=== PATIENT | male | born 1940 | race Caucasian/White ===

== ENCOUNTER 2016-11-23 06:22 | Day surgery (SDC) | payer MEDICARE ==
[~2016-11-23] VITALS: Ht 185.4 cm; Wt 88.6 kg
[2016-11-23] VITALS (7 sets, daily range): BP systolic 125–149; BP diastolic 62–74; PULSE 59–63; RESP 15–20; O2SAT 95–98
[~2016-11-23 06:22] MED LIST: CEPH500C PO; DEX1 PO; DXM4T PO; LENA15CA PO; RIVA20TA PO
[2016-11-23] MEDS ORDERED: Ondansetron 2 mg/mL 2 mL Inj ONE (06:23)
[2016-11-23] MEDS ORDERED: Propofol 10,000 mCg/mL 20 mL Inj ONE (06:23)
[2016-11-23] MEDS ORDERED: fentaNYL-PF 50 mCg/mL 2 mL Inj ONE (06:23)
[2016-11-23] MEDS ORDERED: Dexamethasone 4 mg/mL Inj ONE (06:23)
[2016-11-23] MEDS ORDERED: Lidocaine PF 1% 30 mL Inj ONE (06:23)
[2016-11-23] MEDS: Lactated Ringer's 1,000 ML IV SCH ×3 (07:35→10:29)
[2016-11-23] MEDS ORDERED: Lactated Ringer's 1,000 ML IV SCH (08:52)
[2016-11-23] MEDS ORDERED: Lactated Ringer's 500 ML IV PRN (08:52)
--- NOTE | 2016-11-23 08:52 | PCM.HPANE ---
Patient Data Surgeon Admitting Provider: Attending Provider:Travon Leyva MD Primary Care Physician:Baljeet Smith MD Other Provider: Reason for Visit Open Wound On Scalp, Right Eyelid Wound Ht/WT & BMI Height (Feet): 6 Height (Inches): 1.00 Weight (Kilograms): 88.600 Body Mass Index 25.00 Allergies Coded Allergies: TAPE (Verified Allergy, Unknown, 08/31/16) Past Anesthesia History Anesthesia History: Denies:: Abnormal Airway, Anesthesia Reactions, Difficult Intubation, Malignant Hyperthermia Diabetes History Hx Diabetes?: No MRSA MRSA: No Medications Blood Thinner: Xarelto Last Dose Blood Thinner: Nov 21, 2016 Hypertension Medication: No Home Meds Incl Beta Riya: No Reported Medications Rivaroxaban (Xarelto)20 Mg Stvymi31 Mg PO DAILY 11/22/16 Cephalexin 500 Mg Wpxccbv447 Mg PO BID #40 CAPSULE Ref 0 11/22/16 Lenalidomide (Revlimid)15 Mg Wfxsagn23 Mg PO DAILY DAYS 1-21 IF 28 DAY CYCLE 08/30/16 Dexamethasone 4 Mg Tablet4 Mg PO BID Ref 0 08/30/16 Dexamethasone 1 Mg Tab2 Mg PO DAILY X 5 DAYS 08/30/16 Discontinued Reported Medications Doxycycline Hyclate 100 Mg Vvkgfaw179 Mg PO BID PLEASE VERIFY DOSAGE & FREQUENCY 08/30/16 Warfarin Sodium 3 Mg Tablet3-4 Mg PO DAILY 30 Days Ref 0 08/30/16 History History of ENT Problems?: Yes HEENT History: Denies:: Abnormal Airway Cataracts (S/P BILAT EXTRACTIONS) Difficult Intubation Hx of Heart Problems?: Yes Cardiovascular History: Positive for:: Thrombophlebitis (HX OF DVT- ANTICOAGULATION) Denies:: Heart Murmur Hypertension Hx of Respiratory Problem?: No Respiratory History: Denies:: Use of C-PAP Machine Hx Neurologic Problems?: No Hx of GI Problems?: No Hx of Problems?: No Male Hx: Denies:: Prostate Problems Scrotal Mass Testicular Surgery Skin History: Positive for:: History Skin Disorders? (RT HAND LESION(CA)= CURRENT PROBLEM, L EYELID) Denies:: Pressure Ulcers Hx Musculoskeletal Problems?: Yes Musculoskeletal History: Positive for:: Back Injury (BOTHERS HIM RARELY) Hx of Psycho/Social Problems?: No Hx Surgeries?: Yes (EXC MULT SKIN CA'S,BILAT CATARACTS,EXC LIPOMAS, TONSILLECTOMY) Hx Any Other Health Problems?: Yes Other History: Positive for:: Cancer (BASAL CELL,SQUAMOUS CELL, MYELOMAS-SKIN) Thyroid Disease Denies:: Endocrine Disease Hospitalization History Blood Transfusions: Denies:: Blood Transfusions Hx Diabetes: No Hx Alcohol Use: Yes (PAST ) Smoking Status: Never Smoker Have You Smoked inLast 12 mo: No Stop/Bang S-Snoring: Do You Snore Loudly: No [place] Risk Assessment: Low Risk, <3 Yes Risk Assessment Category Category 1A: Patient has history of documented sleep apnea, and HAS NOT received any narcotic, sedative or anesthesia administration during this stay. Category 1B: Patient has history of documented sleep apnea, and HAS received any narcotic , sedative or anesthesia administration during this stay Category 2: Patient has SUSPECTED Obstructive Sleep Apnea, and HAS received any narcotic , sedative or anesthesia administration during this stay. Category 3: Patient has SUSPECTED Obstructive Sleep Apnea and HAS NOT received narcotic, sedative or anesthesia administration during this stay. Category 4: Outpatient in Procedural Areas with known sleep apnea or who screen positive for High Risk via the STOP/BANG questionnaire. Exam Exam Vital Signs Vital Signs Date Time Temp Pulse Resp B/P Pulse Ox O2 Delivery O2 Flow Rate FiO2 11/23/16 06:47 35.8 63 18 149/70 98 Room Air General Appearance: Alert, Oriented X3 HEENT/AIRWAY: MP 3 Lungs: Clear to Auscultation Heart: Exam Unremarkable Meds/Labs/Diagnostics Admission Meds Current Medications Lactated Ringer's (Lr) 1,000 ml @ 120 mls/hr Q8H20M IV Last administered on t 07:35; Start 11/23/16 at 05:00; Stop 11/23/16 at 13:19 Plan Impression Patient chart reviewed, patient interviewed and anesthestic plan with risks, benefits, and alternatives discussed, and informed consent obtained. NPO Status: mn ASA Physical Status: ASA3 Severe Disease Anesthetic Plan: GA Bene/Risks/Altern/Consents: Yes HP Complete Prior to Induction: Yes Adal Torre DO Nov 23, 2016 08:14
[2016-11-23] MEDS ORDERED: EPHEDrine Sulfate 50 mg/mL Inj IVPUSH PRN (08:55)
[2016-11-23] MEDS ORDERED: fentaNYL-PF 50 mCg/mL 2 mL Inj IVPUSH PRN (08:55)
[2016-11-23] MEDS ORDERED: Phenylephrine 10,000 mCg/mL Inj IVPUSH PRN (08:55)
[2016-11-23] MEDS ORDERED: Ondansetron 2 mg/mL 2 mL Inj IVPUSH PRN (08:55)
[2016-11-23] MEDS ORDERED: hydrALAZINE 20 mg/mL Inj IVPUSH PRN (08:55)
[2016-11-23] MEDS ORDERED: Dexamethasone 4 mg/mL Inj IVPUSH PRN (08:55)
[2016-11-23] MEDS ORDERED: Labetalol 5 mg/mL 4 mL Inj IV PRN (08:55)
[2016-11-23] MEDS ORDERED: MetoCLOpramide 5 mg/mL 2 mL Inj IVPUSH PRN (08:55)
[2016-11-23] MEDS ORDERED: Atropine 0.4 mg/mL Inj IVPUSH PRN (08:55)
[2016-11-23] MEDS ORDERED: HYDROmorphone 1 mg/mL Inj IVPUSH PRN (08:55)
[2016-11-23] MEDS ORDERED: Bupivacaine-MPF 0.25%/EPI 30 mL Inj INJ ONE (09:03)
[2016-11-23] MEDS ORDERED: HYDROcodone-APAP 5-325 mg Tablet PO PRN (10:15)
--- NOTE | 2016-11-23 10:56 | PCM.ANEP1 ---
Post Anesthesia Phase 1 PACU Phase 1 Assessment Vital Signs Vital Signs Date Time Temp Pulse Resp B/P Pulse Ox O2 Delivery O2 Flow Rate FiO2 11/23/16 10:30 60 15 140/64 95 Room Air 11/23/16 10:15 63 15 133/74 96 Room Air 11/23/16 10:10 62 20 126/62 96 Room Air 11/23/16 10:06 37.1 60 15 125/64 95 Room Air 11/23/16 06:47 35.8 63 18 149/70 98 Room Air Anesthetic Administered: GA Level of Alertness: Sleepy, easy to arouse SCHREIBER's with Equal Strength: Yes Pain: No Nausea or Vomiting: No Oxygen Delivery: Room Air Lungs: Clear to Auscultation Adal Torre DO Nov 23, 2016 10:55
--- NOTE | 2016-11-23 10:56 | PCM.ANEP2 ---
Post Anesthesia Evaluation ASA/CMS Post Anesthesia VS in Patient's Normal Range?: Yes Resp Stable; Airway Patent?: Yes CV Function & Hydration Stable: Yes Mental Status Recovered?: Yes Pain control Satisfactory?: Yes N/V Control Satisfactory?: Yes Adal Torre DO Nov 23, 2016 10:56
--- NOTE | 2016-11-25 10:54 | OP ---
[address] [address] OPERATIVE REPORT PATIENT: AMARI FISHER : 1940 MR#: [id number] ADMIT: 11/23/2016 JOB ID: [id number] DATE OF SURGERY: 11/23/2016 PREOPERATIVE DIAGNOSIS(ES): 1. Right upper eyelid defect measuring 1.7 cm x 1 cm status post Mohs procedure. 2. Right parietal scalp defect measuring 2 cm in diameter status post Mohs defect. 3. Left parietal defect measuring 1 cm in diameter status post Mohs defect. POSTOPERATIVE DIAGNOSIS(ES): 1. Right upper eyelid defect measuring 1.7 cm x 1 cm status post Mohs procedure. 2. Right parietal scalp defect measuring 2 cm in diameter status post Mohs defect. 3. Left parietal defect measuring 1 cm in diameter status post Mohs defect. PROCEDURE: 1. Full-thickness skin grafting to right parietal scalp defect, total area of skin graft 3 sq cm. 2. Layered closure of left parietal scalp defect, total length of layered closure 4 cm. 3. Simple closure of right eye brow defect, total length of simple closure 3 cm. SURGEON: Travon Leyva MD FRONT CLERK: None. ANESTHESIA: General anesthesia. COMPLICATIONS: None apparent. ESTIMATED BLOOD LOSS: Minimal. SPECIMEN: None. INDICATIONS FOR PROCEDURE: This is a 76-year-old male patient with a history of several skin cancers in the head and neck area. The patient had Mohs procedures on November 21, 2016 to the right brow, right parietal scalp and left parietal scalp. The patient has three resultant defects. Closure and coverage are indicated. PROCEDURES AND FINDINGS: The patient was identified in the preoperative area and surgical sites were marked. The patient was then taken back to the operating room and placed supine on the operating table. Appropriate time-outs were taken. General anesthesia was induced smoothly. The patient was then prepped and draped in the usual sterile manner. Local anesthesia was then infiltrated to the surgical sites consisting of Marcaine with epinephrine. I first turned my attention to the right brow. The patient has a trapezoidal shaped defect that is located on the upper eyelid. It abuts the brow. It is approximately 1 cm in height and 1.2 cm in width. An ellipse was then designed to encompass this defect. The axis of the ellipse was oriented along the relaxed skin tension line and with the orbital rim. Incision was then made along the ellipse through the thinned upper eyelid skin down to the underlying orbicularis muscle. Hemostasis was obtained with electrocautery. The skin was then removed sharply with a pair of iris scissors. Once hemostasis was obtained, the defect was reapproximated with a layer of 5-0 Prolene simple running suture. The total length of simple closure was 3 cm. I then turned my attention to the right parietal scalp. The patient has a 2 cm or so defect in the parietal scalp. There is a small amount of adipose tissue at the base of the wound. I first performed blunt dissection to elevate the wound edge off of the underlying galea circumferentially for approximately 3-4 cm in each direction. Once this has been done, I tried to mobilize the scalp. The scalp was not particularly mobile and there was no possibility that this wound can be closed primarily. I elected to proceed with skin grafting. A small ellipse was then designed along the patient's right clavicle. An incision was then made with a #15 blade down through the epidermis into the dermis. The ellipse of skin was then elevated at a mid dermal level. Once this has been done, it was placed in a moist Ray-Ever for storage. The shoulder defect was then reapproximated first with a layer of 3-0 Monocryl deep dermal suture followed by 4-0 Monocryl running subcuticular suture. The skin graft was then gently defatted and placed into the scalp defect. It was then sutured in several spots using 4-0 silk simple interrupted sutures with the tails left long. Excess graft was trimmed. A layer of 5-0 fast-absorbing gut simple running suture was then placed circumferentially. I then placed several more 4-0 silk simple interrupted sutures around this graft. Once this has been done, a 4x4 inch Xeroform was then obtained and wadded up. It was then placed over the graft. It was then secured using the tails from the 4-0 silk sutures in a tie-over manner. Once this has been done, I turned my attention to the left parietal scalp defect. An ellipse was then designed with the axis to lie along the hairline. Incision was then made with a #15 blade down to the underlying subcutaneous tissue. The ellipse was then elevated at a mid subcutaneous level. I then elevated the skin flap anteriorly and posteriorly off of the galea for approximately 3-4 cm in diameter. Once this has been done, the layer of 3-0 Monocryl deep dermal sutures were then placed, followed by skin harsha for final epidermal reapproximation. The total length of layered closure was 4 cm. The patient tolerated the procedure well. Needle count, sponge count, instrument counts were correct at the end of the procedure. The patient was extubated and transported to recovery in stable condition.
[2016-12-13] MEDS ORDERED: WARF4TAB PO (16:08)
[2016-12-13] MEDS ORDERED: WARF3TAB PO (16:08)
[2016-12-14] MEDS ORDERED: RIVA20TA PO (12:07)
[2017-01-24] MEDS ORDERED: HYDR-4003 PO (18:35)
[2017-01-24] MEDS ORDERED: CEPH-512 PO (18:35)
== END 2016-11-23 23:59 | disposition home or self-care (01) ==
LOC: SAS 06:22
PROVIDERS: ATTEND Plastic Surgery
DX: S01.101A Unspecified open wound of right eyelid and periocular area, initial encounter (principal); S01.00XA Unspecified open wound of scalp, initial encounter; Z85.828 Personal history of other malignant neoplasm of skin; I82.502 Chronic embolism and thrombosis of unspecified deep veins of left lower extremity; Z79.01 Long term (current) use of anticoagulants
CPT/HCPCS: 12013; 12032; 14020; J1100; J2405; J3010; J7120

== ENCOUNTER 2016-12-15 06:46 | Day surgery (SDC) | payer MEDICARE ==
[~2016-12-15] VITALS: Ht 182.9 cm; Wt 89.3 kg
[~2016-12-15 06:46] MED LIST changes: -CEPH500C PO; +CeFAZolin Inj 2 GM in IV Premix 1 EACH IV ONE; -DEX1 PO; +Lactated Ringer's 1,000 ML IV SCH; +WARF4TAB PO
[2016-12-15] MEDS ORDERED: fentaNYL-PF 50 mCg/mL 2 mL Inj ONE (06:47)
[2016-12-15 07:09] VITALS: BP 140/71; PULSE 53; RESP 16; O2SAT 98
[2016-12-15] MEDS: Lactated Ringer's 1,000 ML IV SCH ×2 (07:40→09:36)
[2016-12-15] MEDS ORDERED: DXM4T PO (07:45)
[2016-12-15] MEDS ORDERED: Lactated Ringer's 500 ML IV PRN (08:57)
[2016-12-15] MEDS ORDERED: Lactated Ringer's 1,000 ML IV SCH (08:57)
--- NOTE | 2016-12-15 08:57 | PCM.HPANE ---
Patient Data Date of Service: Dec 15, 2016 Surgeon Admitting Provider: Attending Provider:Travon Leyva MD Primary Care Physician:Baljeet Smith MD Other Provider:[facility] Reason for Visit Left Forearm Squamous Cell Carcinoma Ht/WT & BMI Height (Feet): 6 Height (Inches): 0.00 Weight (Kilograms): 89.300 Body Mass Index 26.00 Allergies Coded Allergies: TAPE (Verified Adverse Reaction, Severe, OCCLUSIVE TAPE PULLS OFF SKIN, ) Past Anesthesia History Anesthesia History: Denies:: Abnormal Airway, Anesthesia Reactions, Difficult Intubation, Malignant Hyperthermia Diabetes History Hx Diabetes?: No MRSA MRSA: No Medications Blood Thinner: Xarelto Last Dose Blood Thinner: Dec 13, 2016 Hypertension Medication: No Home Meds Incl Beta Riya: No Reported Medications Dexamethasone 4 Mg Lxywni51 Mg PO FRID AND SAT Ref 0 12/15/16 Rivaroxaban (Xarelto)20 Mg Iogxpx20 Mg PO DAILY 12/14/16 Lenalidomide (Revlimid)15 Mg Ailxpyg29 Mg PO DAILY DAYS 1-21 OF 28 DAY CYCLE 08/30/16 Discontinued Reported Medications Warfarin Sodium (Coumadin)4 Mg Tablet4 Mg PO EVERY OTHER DAY 30 Days Ref 0 ALTERNATES W/ 3MG 12/13/16 Warfarin Sodium (Coumadin)3 Mg Tablet3 Mg PO EVERY OTHER DAY 30 Days Ref 0 ALTERNATES W/ 4MG 12/13/16 Rivaroxaban (Xarelto)20 Mg Buooai24 Mg PO DAILY 11/22/16 Cephalexin 500 Mg Phqjxbh332 Mg PO BID #40 CAPSULE Ref 0 11/22/16 Dexamethasone 1 Mg Tab2 Mg PO DAILY X 5 DAYS 08/30/16 History History of ENT Problems?: Yes HEENT History: Denies:: Abnormal Airway Cataracts (S/P BILAT EXTRACTIONS) Difficult Intubation Other HEENT Pertinent History: S/P TONSILLECTOMY Hx of Heart Problems?: Yes Cardiovascular History: Positive for:: Thrombophlebitis (HX OF DVT- ANTICOAGULATION) Denies:: Heart Murmur Hypertension Hx of Respiratory Problem?: No Respiratory History: Denies:: Use of C-PAP Machine Hx Neurologic Problems?: No Hx of GI Problems?: No Hx of Problems?: No Male Hx: Denies:: Prostate Problems Scrotal Mass Testicular Surgery Skin History: Positive for:: History Skin Disorders? (S/P MULT BCC/SCC EXC ( HAND,EYELID) LT FOREARM SC CA=CURRENT PROBLEM) Denies:: Pressure Ulcers Hx Musculoskeletal Problems?: Yes Musculoskeletal History: Positive for:: Back Injury (BOTHERS HIM RARELY) Hx of Psycho/Social Problems?: No Hx Surgeries?: Yes (EXC MULT SKIN CA'S,BILAT CATARACTS,EXC LIPOMAS, TONSILLECTOMY) Hx Any Other Health Problems?: Yes Other History: Positive for:: Cancer (BASAL CELL,SQUAMOUS CELL, Multiple myeloma) Thyroid Disease Denies:: Endocrine Disease Hospitalization History Blood Transfusions: Denies:: Blood Transfusions Hx Diabetes: No Hx Alcohol Use: Yes (PAST )Hx Substance Use: No Smoking Status: Never Smoker Have You Smoked inLast 12 mo: No Stop/Bang Treated for Sleep Apnea?: No Do You Have a CPAP Machine?: No S-Snoring: Do You Snore Loudly: No T-Tired: feel tired, fatigued: No O-Obsered: Observed not breath: No P-Blood Pressure: treated: No B- Body Mass Index > 35 kg/m2: No A- Age over 50: Yes N- Neck Large Circumference: No G- Gender Male: Yes [place] Total Score: 2 [place] Risk Assessment: Low Risk, <3 Yes Risk Assessment Category Category 1A: Patient has history of documented sleep apnea, and HAS NOT received any narcotic, sedative or anesthesia administration during this stay. Category 1B: Patient has history of documented sleep apnea, and HAS received any narcotic , sedative or anesthesia administration during this stay Category 2: Patient has SUSPECTED Obstructive Sleep Apnea, and HAS received any narcotic , sedative or anesthesia administration during this stay. Category 3: Patient has SUSPECTED Obstructive Sleep Apnea and HAS NOT received narcotic, sedative or anesthesia administration during this stay. Category 4: Outpatient in Procedural Areas with known sleep apnea or who screen positive for High Risk via the STOP/BANG questionnaire. Exam Exam Vital Signs Vital Signs Date Time Temp Pulse Resp B/P Pulse Ox O2 Delivery O2 Flow Rate FiO2 12/15/16 07:09 36.5 53 16 140/71 98 Room Air General Appearance: Alert, Oriented X3, Cooperative HEENT/AIRWAY: MP 2, Neck Movement (Full), Mouth Opening (Wide) Lungs: Clear to Auscultation, Normal Air Movement Heart: Normal S1, Normal S2 Meds/Labs/Diagnostics Admission Meds Current Medications Lactated Ringer's (Lr) 1,000 ml @ 120 mls/hr Q8H20M IV Last administered on t 07:40; Start 12/15/16 at 05:00; Stop 12/15/16 at 13:19 Plan Impression Patient chart reviewed, patient interviewed and anesthestic plan with risks, benefits, and alternatives discussed, and informed consent obtained. NPO Status: MN ASA Physical Status: ASA3 Severe Disease Anesthetic Plan: MAC Bene/Risks/Altern/Consents: Yes HP Complete Prior to Induction: Yes Adam Garcia MD Dec 15, 2016 08:40
[2016-12-15] MEDS ORDERED: Ondansetron 2 mg/mL 2 mL Inj IVPUSH PRN (09:00)
[2016-12-15] MEDS ORDERED: Phenylephrine 10,000 mCg/mL Inj IVPUSH PRN (09:00)
[2016-12-15] MEDS ORDERED: MetoCLOpramide 5 mg/mL 2 mL Inj IVPUSH PRN (09:00)
[2016-12-15] MEDS ORDERED: fentaNYL-PF 50 mCg/mL 2 mL Inj IVPUSH PRN (09:00)
[2016-12-15] MEDS ORDERED: HYDROmorphone 1 mg/mL Inj IVPUSH PRN (09:00)
[2016-12-15] MEDS ORDERED: Labetalol 5 mg/mL 4 mL Inj IV PRN (09:00)
[2016-12-15] MEDS ORDERED: Atropine 0.4 mg/mL Inj IVPUSH PRN (09:00)
[2016-12-15] MEDS ORDERED: EPHEDrine Sulfate 50 mg/mL Inj IVPUSH PRN (09:00)
[2016-12-15] MEDS ORDERED: Dexamethasone 4 mg/mL Inj IVPUSH PRN (09:00)
[2016-12-15] MEDS ORDERED: hydrALAZINE 20 mg/mL Inj IVPUSH PRN (09:00)
[2016-12-15] MEDS ORDERED: Bupivacaine-MPF 0.5% W/EPI 30 mL Inj INFILTRATE ONE (09:35)
--- NOTE | 2016-12-15 10:08 | PCM.ANEP1 ---
Post Anesthesia Phase 1 PACU Phase 1 Assessment Date of Service: Dec 15, 2016 Vital Signs Phase II - HR 62, O2 96% RA, T 36.0, RR 12, BP 125/72 Vital Signs Date Time Temp Pulse Resp B/P Pulse Ox O2 Delivery O2 Flow Rate FiO2 12/15/16 07:09 36.5 53 16 140/71 98 Room Air Anesthetic Administered: MAC Level of Alertness: Awake, talking SCHREIBER's with Equal Strength: Yes Pain: No Nausea or Vomiting: No Oxygen Delivery: Room Air Lungs: Normal Air Movement Adam Garcia MD Dec 15, 2016 10:08
[2016-12-15 10:11] VITALS: BP 125/72; PULSE 60; RESP 16; O2SAT 97
--- NOTE | 2016-12-15 10:21 | PCM.ANEP2 ---
Post Anesthesia Evaluation ASA/CMS Post Anesthesia Date of Service: Dec 15, 2016 VS in Patient's Normal Range?: Yes Resp Stable; Airway Patent?: Yes CV Function & Hydration Stable: Yes Mental Status Recovered?: Yes Pain control Satisfactory?: Yes N/V Control Satisfactory?: Yes Adam Garcia MD Dec 15, 2016 10:21
[2016-12-15 10:39] VITALS: BP 123/64; PULSE 51; RESP 16; O2SAT 98
--- NOTE | 2016-12-15 14:45 | OP ---
[address] [address] OPERATIVE REPORT PATIENT: AMARI FISHER : 1940 MR#: [id number] ADMIT: 12/15/2016 JOB ID: [id number] DATE OF SURGERY: 12/15/2016 PREOPERATIVE DIAGNOSIS(ES): Left forearm squamous cell carcinoma. POSTOPERATIVE DIAGNOSIS(ES): Left forearm squamous cell carcinoma. PROCEDURES PERFORMED: 1. Excision of left forearm squamous cell carcinoma; diameter 2 cm. 2. Layered closure of left forearm defect; total length of layered closure 7 cm. SURGEON: Travon Leyva MD. DUTY MANAGER: None. ANESTHESIA: MAC, with local. COMPLICATIONS: None apparent. SPECIMEN: None. 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 At this point, excision and subsequent closure are indicated. PROCEDURES AND FINDINGS: The patient was identified in the preoperative area and surgical site was marked. The patient was then taken back to the operating room and placed supine on the operating table. Appropriate time-outs were taken. MAC was induced smoothly. The patient was then prepped and draped in the usual sterile manner. Local anesthesia was then infiltrated into the surgical site consisting of 1% lidocaine and 0.25% Marcaine with epinephrine. It was noted that patient has a healed biopsy scar on the left forearm. His previous pathology report demonstrated positive deep margins only. I made a hawa around the patient's scar with a minimal margin. Incision was then made with a #15 blade down into the subcutaneous tissue. The circular piece of skin was then resected with a cuff of subcutaneous tissue on its underside. A short stitch was then used to hawa distal and long stitch dorsal. Hemostasis was obtained with electrocautery. The patient's specimen was then passed off to Pathology for frozen section, which demonstrated no residual cancer. There was some atypia at the proximal margin. At this point, an ellipse was then designed to encompass the defect. This should include the area of atypia that was seen on the specimen. Incision was then made around the ellipse, down into the underlying subcutaneous tissue. The ellipse was then resected with minimal subcutaneous tissue. Again, the defect diameter was approximately 2 cm. The incision was then reapproximated first with a layer of 3-0 Monocryl deep dermal suture, followed by 4-0 Monocryl running subcuticular suture. Skin glue was then applied. The patient tolerated the procedure well. Needle count, sponge count, instrument counts were correct at the end of the procedure. The patient was transported to recovery in stable condition. Again, the length of total layered closure was 7 cm.
[2017-01-24] MEDS ORDERED: CEPH-512 PO (18:35)
[2017-01-24] MEDS ORDERED: HYDR-4003 PO (18:35)
== END 2016-12-15 23:59 | disposition home or self-care (01) ==
LOC: SAS 06:46
PROVIDERS: ATTEND Plastic Surgery
DX: C44.629 Squamous cell carcinoma of skin of left upper limb, including shoulder (principal); Z79.01 Long term (current) use of anticoagulants
CPT/HCPCS: 11602; 12032; J0690; J2250; J3010; J7120

== ENCOUNTER 2017-01-25 10:11 | Day surgery (SDC) | payer MEDICARE ==
[~2017-01-25] VITALS: Ht 182.9 cm; Wt 87.8 kg
[2017-01-25] VITALS (11 sets, daily range): BP systolic 133–144; BP diastolic 57–61; PULSE 45–48; RESP 9–17; O2SAT 96–99
--- NOTE | 2017-01-25 06:45 | PCM.HPANE ---
Patient Data Surgeon Admitting Provider: Attending Provider:Travon Leyva MD Primary Care Physician:Baljeet Smith MD Other Provider:[facility] Reason for Visit Open Bilateral Cheek Wound Ht/WT & BMI Height (Feet): 6 Height (Inches): 0 Weight (Kilograms): 87.9 Body Mass Index 26.00 Allergies Coded Allergies: TAPE (Verified Adverse Reaction, Severe, OCCLUSIVE TAPE PULLS OFF SKIN ( medipore tape ok), 01/24/17) Past Anesthesia History Anesthesia History: Denies:: Abnormal Airway, Anesthesia Reactions, Difficult Intubation, Malignant Hyperthermia Diabetes History Hx Diabetes?: No MRSA MRSA: No Medications Blood Thinner: Xarelto Reported Medications Hydrocodone-Acetaminophen 5-325 mg 1 Each Tablet1 Tablet PO Q6H PRN For Pain Ref 0 01/24/17 Cephalexin (Keflex)500 Mg Pdvmfka729 Mg PO BID #40 CAPSULE Ref 0 01/24/17 Dexamethasone 4 Mg Xmiahv51 Mg PO sat, sun Ref 0 12/15/16 Rivaroxaban (Xarelto)20 Mg Fstgwg81 Mg PO DAILY 12/14/16 Lenalidomide (Revlimid)15 Mg Qdewohn40 Mg PO DAILY DAYS 1-21 OF 28 DAY CYCLE 08/30/16 History History of ENT Problems?: Yes HEENT History: Denies:: Abnormal Airway Cataracts (S/P BILAT EXTRACTIONS) Difficult Intubation Other HEENT Pertinent History: BILAT OPEN MOHS INCISIONS-CHEEKS=CURRENT PROBLEM S/P TONSILLECTOMY Hx of Heart Problems?: Yes Cardiovascular History: Positive for:: Thrombophlebitis (HX OF DVT- ANTICOAGULATION) Denies:: Heart Murmur Hypertension Hx of Respiratory Problem?: No Respiratory History: Denies:: Use of C-PAP Machine Hx Neurologic Problems?: No Hx of GI Problems?: No Hx of Problems?: No Male Hx: Denies:: Prostate Problems Scrotal Mass Testicular Surgery Skin History: Positive for:: History Skin Disorders? (S/P MULT BCC/SCC EXC ( HAND,EYELID) LT FOREARM SC CA=CURRENT PROBLEM) Denies:: Pressure Ulcers Hx Musculoskeletal Problems?: Yes Musculoskeletal History: Positive for:: Back Injury (BOTHERS HIM RARELY) Hx of Psycho/Social Problems?: No Hx Surgeries?: Yes (EXC MULT SKIN CA'S,BILAT CATARACTS,EXC LIPOMAS, TONSILLECTOMY) Hx Any Other Health Problems?: Yes Other History: Positive for:: Cancer (BASAL CELL,SQUAMOUS CELL, Multiple myeloma) Thyroid Disease (HX OF) Denies:: Endocrine Disease Hospitalization History Blood Transfusions: Denies:: Blood Transfusions Hx Diabetes: No Hx Alcohol Use: Yes (PAST )Hx Substance Use: No Smoking Status: Never Smoker Have You Smoked inLast 12 mo: No Stop/Bang S-Snoring: Do You Snore Loudly: No T-Tired: feel tired, fatigued: No O-Obsered: Observed not breath: No P-Blood Pressure: treated: No B- Body Mass Index > 35 kg/m2: No A- Age over 50: Yes N- Neck Large Circumference: No G- Gender Male: Yes [place] Total Score: 2 Risk Assessment Category Category 1A: Patient has history of documented sleep apnea, and HAS NOT received any narcotic, sedative or anesthesia administration during this stay. Category 1B: Patient has history of documented sleep apnea, and HAS received any narcotic , sedative or anesthesia administration during this stay Category 2: Patient has SUSPECTED Obstructive Sleep Apnea, and HAS received any narcotic , sedative or anesthesia administration during this stay. Category 3: Patient has SUSPECTED Obstructive Sleep Apnea and HAS NOT received narcotic, sedative or anesthesia administration during this stay. Category 4: Outpatient in Procedural Areas with known sleep apnea or who screen positive for High Risk via the STOP/BANG questionnaire. Exam Exam General Appearance: Alert, Oriented X3, Cooperative HEENT/AIRWAY: MP 2, Neck Movement (from), Mouth Opening (wnl) Lungs: Clear to Auscultation Heart: Exam Unremarkable Plan Impression Patient chart reviewed, patient interviewed and anesthestic plan with risks, benefits, and alternatives discussed, and informed consent obtained. NPO Status: 12/14/16 1800 ASA Physical Status: ASA2 Mod Systemic Disease Anesthetic Plan: GA Bene/Risks/Altern/Consents: Yes HP Complete Prior to Induction: Yes Other SUrgeon Requests Kemar Russell MD Jan 25, 2017 06:45
[~2017-01-25 10:11] MED LIST changes: +CEPH-512 PO; -CeFAZolin Inj 2 GM in IV Premix 1 EACH IV ONE; +HYDR-4003 PO; +Lactated Ringer's 1,000 ML IV ONE; -Lactated Ringer's 1,000 ML IV SCH; -WARF4TAB PO
[2017-01-25] MEDS ORDERED: Propofol 10,000 mCg/mL 20 mL Inj ONE (10:12)
[2017-01-25] MEDS ORDERED: fentaNYL-PF 50 mCg/mL 2 mL Inj ONE (10:12)
[2017-01-25] MEDS ORDERED: Glycopyrrolate 0.2 MG/ML 1mL Inj ONE (10:12)
[2017-01-25] MEDS ORDERED: Ondansetron 2 mg/mL 2 mL Inj ONE (10:12)
[2017-01-25] MEDS ORDERED: EPHEDrine Sulfate 50 mg/mL Inj IVPUSH PRN (12:30)
[2017-01-25] MEDS ORDERED: Labetalol 5 mg/mL 4 mL Inj IV PRN (12:30)
[2017-01-25] MEDS ORDERED: Ondansetron 2 mg/mL 2 mL Inj IVPUSH PRN (12:30)
[2017-01-25] MEDS ORDERED: Phenylephrine 10,000 mCg/mL Inj IVPUSH PRN (12:30)
[2017-01-25] MEDS ORDERED: HYDROmorphone 1 mg/mL Inj IVPUSH PRN (12:30)
[2017-01-25] MEDS ORDERED: Atropine 0.4 mg/mL Inj IVPUSH PRN (12:30)
[2017-01-25] MEDS ORDERED: hydrALAZINE 20 mg/mL Inj IVPUSH PRN (12:30)
[2017-01-25] MEDS ORDERED: fentaNYL-PF 50 mCg/mL 2 mL Inj IVPUSH PRN (12:30)
[2017-01-25] MEDS ORDERED: Lactated Ringer's 500 ML IV PRN (12:30)
[2017-01-25] MEDS ORDERED: Dexamethasone 4 mg/mL Inj IVPUSH PRN (12:30)
[2017-01-25] MEDS ORDERED: Lactated Ringer's 1,000 ML IV SCH (12:30)
[2017-01-25] MEDS ORDERED: Bupivacaine-MPF 0.25%/EPI 30 mL Inj INJ ONE (12:31)
[2017-01-25] MEDS ORDERED: HYDROcodone-APAP 5-325 mg Tablet PO PRN (13:40)
--- NOTE | 2017-01-25 14:43 | PCM.ANEP1 ---
Post Anesthesia Phase 1 PACU Phase 1 Assessment Vital Signs Vital Signs Date Time Temp Pulse Resp B/P Pulse Ox O2 Delivery O2 Flow Rate FiO2 01/25/17 14:20 36.1 45 15 135/57 98 Room Air 01/25/17 14:15 46 13 142/60 99 Room Air 01/25/17 14:10 46 12 136/60 98 Room Air 01/25/17 14:00 47 13 133/58 98 Room Air 01/25/17 13:55 36.1 47 12 135/61 98 Room Air 01/25/17 13:50 47 12 141/58 98 Room Air 01/25/17 13:45 47 9 135/61 97 Room Air 01/25/17 13:40 48 10 136/58 96 Room Air 01/25/17 13:35 48 12 137/61 97 Room Air 01/25/17 13:32 37.0 48 12 144/59 97 Room Air 01/25/17 11:26 35.6 47 17 139/59 99 Room Air Anesthetic Administered: GA Level of Alertness: Awake, talking SCHREIBER's with Equal Strength: Yes Pain: No Nausea or Vomiting: No Oxygen Delivery: Room Air Kemar Johns MD Jan 25, 2017 14:43
--- NOTE | 2017-01-26 07:33 | PCM.ANEP2 ---
Post Anesthesia Evaluation ASA/CMS Post Anesthesia VS in Patient's Normal Range?: Yes Resp Stable; Airway Patent?: Yes CV Function & Hydration Stable: Yes Mental Status Recovered?: Yes Pain control Satisfactory?: Yes N/V Control Satisfactory?: Yes Kemar Johns MD Jan 26, 2017 07:33
--- NOTE | 2017-01-30 20:46 | OP ---
[address] [address] OPERATIVE REPORT PATIENT: AMARI FISHER : 1940 MR#: [id number] ADMIT: 01/25/2017 JOB ID: [id number] DATE OF SURGERY: 01/25/2017 PREOPERATIVE DIAGNOSIS(ES): 1. Left medial cheek wound. 2. Right lateral cheek wound. POSTOPERATIVE DIAGNOSIS(ES): 1. Left medial cheek wound. 2. Right lateral cheek wound. PROCEDURE: 1. Layered closure of left medial cheek wound. Total length of layered closure 6 cm. 2. Flap closure of the right cheek wound using a V to Y island pedicle flap. Total area of local tissue rearrangement is 15 square cm. SURGEON: Travon Leyva MD. GENERAL CLEANER: None. ANESTHESIA: General anesthesia. ESTIMATED BLOOD LOSS: Minimal. COMPLICATIONS: None apparent. SPECIMEN: None. DRAINS: None. INDICATIONS FOR PROCEDURE: This is a 76-year-old male patient with a history of several facial skin cancers. The patient underwent Mohs resection on January 23, 2017. The patient had a resultant left medial cheek wound and a right lateral cheek wound. At this point, closure of these wounds are indicated. PROCEDURES AND FINDINGS: The patient was identified in the preoperative area. Surgical site was marked. The patient was then taken back to the operating room and placed supine on the operating table. Appropriate time-outs were taken. General anesthesia was induced smoothly. The patient was then prepped and draped in the usual sterile manner. It was noted that patient has two open wounds on the face on the left side. The wound is located just off of the nasolabial fold near the level of the nares. It is 1.5 cm in its maximal dimension. On the right lateral cheek, there is a large circular wound over the malar eminence. The wound measures approximately 3 cm x 4 cm. I first turned my attention to the left cheek wound. An ellipse was then designed to encompass the defect. The ellipse was designed to lie along the nasolabial fold. Incision was then made along the ellipse with a #15 blade. This was deepened down into the underlying subcutaneous tissue. The two skin darts were then elevated and resected with electrocautery at a superficial subcutaneous level. At the location of the wound, the surface of the wound was resected with electrocautery to remove some of the adipose tissue and to make sure the wound surface is completely level. Once this has been done, the incision was then reapproximated first with a layer of 4-0 Monocryl deep dermal suture, followed by 5-0 Prolene simple running suture. I then turned my attention to the right cheek. A V to Y island pedicle flap was then designed that runs along the inferolateral cheek. Incision was then made with a #15 blade and deepened down into the underlying subcutaneous tissue. I then deepened the incision further down to the superficial muscular aponeurotic system. Once this has been done, I elevated the soft tissue around the flap with blunt and sharp dissection with a pair of tenotomy scissors at a superficial subcutaneous level. This was also done around the right cheek defect. Once this has been done, I elevated the superior one-third of the pedicle flap off of the underlying SMAS. I also elevated the distal, or the inferior one-third. Once this has been done, I mobilized the flap superiorly into the defect. Blunt dissection was carried out with some spreading at areas where the flap appeared to be tethered. Once this has been done, the flap was trimmed to size and secured in place, first with several 3-0 Monocryl deep dermal sutures. Intervening 4-0 Monocryl deep dermal sutures were then placed. The final epidermal reapproximation was carried out with 5-0 Prolene simple running suture. The patient tolerated the procedure well. Needle count, sponge count, and instrument counts were correct at the end of the procedure. The patient was extubated and transported to recovery in stable condition.
== END 2017-01-25 23:59 | disposition home or self-care (01) ==
LOC: SAS 10:11
PROVIDERS: ATTEND Plastic Surgery
DX: S01.402A Unspecified open wound of left cheek and temporomandibular area, initial encounter (principal); S01.401A Unspecified open wound of right cheek and temporomandibular area, initial encounter; M95.2 Other acquired deformity of head; Z48.1 Encounter for planned postprocedural wound closure; Z48.3 Aftercare following surgery for neoplasm; Z85.828 Personal history of other malignant neoplasm of skin; I80.9 Phlebitis and thrombophlebitis of unspecified site; Z79.01 Long term (current) use of anticoagulants; Z86.718 Personal history of other venous thrombosis and embolism
CPT/HCPCS: 13132; 14041; J2405; J3010; J7120